=== PATIENT | female | born 1995 | race African-American/Black ===

== ENCOUNTER 2017-02-01 06:12 | Emergency (ER) | payer OTHER ==
[~2017-02-01] VITALS: Ht 167.6 cm; Wt 89.9 kg
[~2017-02-01 06:12] MED LIST: ULTRAM50 MG PO
[2017-02-01 07:35] LABS: ADD MIUA? NO; BILIRUBIN NEGATIVE; BLOOD NEGATIVE; COLOR YELLOW ((YELLOW)); GLUCOSE (STRIP) NEGATIVE; KETONES NEGATIVE; LEUKOCYTES NEGATIVE; NITRITE NEGATIVE; PROTEIN (STRIP) NEGATIVE; SPECIFIC GRAVITY 1.013 (1.000-1.030)
[2017-02-01 07:58] LABS: HEMATOCRIT 39.6 % (36.0-46.0); MCH 29.8 PG (29.0-34.0); MCHC 33.3 G/DL (30.0-36.0); MCV 89.4 FL (83-99); MEAN PLAT.VOLUME 9.2 uM^3 (9.5-12.4); PLATELET COUNT 279 K/uL (156-360); RBC DIS.WIDTH-CV 11.4 % (11.8-14.6); RED BLOOD COUNT 4.43 M/uL (3.80-5.20); WHITE BLOOD COUNT 4.5 K/uL (4.1-10.2)
[2017-02-01 08:06] LABS: CHLORIDE 104 mEq/L (99-109); POTASSIUM 3.7 mEq/L (3.7-5.4); SODIUM 137 mEq/L (136-147)
[2017-02-01 08:09] LABS: GLUCOSE 99 mg/dL (70-99); INTER. NORMALIZED RATIO 1.1; PROTHROMBIN TIME 12.6 SEC (10.2-12.9)
[2017-02-01 08:10] LABS: ANION GAP 10 MEQ/L (2-14)
[2017-02-01 08:11] LABS: TOTAL BILIRUBIN 0.5 mg/dL (0.0-1.0)
[2017-02-01 08:12] LABS: ALKALINE PHOSPHATASE 49 IU/L (3-129); GFR ESTIMATE (CALCULATED) > 59 mL/min/; PTT 31.1 SEC (25-37)
[2017-02-01 08:13] LABS: UREA NITROGEN (BUN) 7 mg/dL (9-23)
[2017-02-01 08:25] LABS: QUANTITATIVE HCG < 4.0 MIU/ML
[2017-02-01 08:54] LABS: EOSINOPHIL (%) 2.9 % (0-5); EOSINOPHIL COUNT 0.1 K/uL (0-0.3); IMMATURE GRANULOCYTE (%) 0.4 % (0.0-0.7); INSTRUMENT ABS NEUTROPHIL CT 2.5 K/uL; LYMPHOCYTE COUNT 1.5 K/uL (1.0-2.8); MONOCYTE (%) 8.6 % (3-12); MONOCYTE COUNT 0.4 K/uL (0-0.8); NEUTROPHIL (%) 54.8 % (45-76); NEUTROPHIL COUNT 2.5 K/uL (1.8-6.4)
[2017-02-01 09:12] LABS: C-REACTIVE PROTEIN 37.6 MG/L (0-10)
[2017-02-01] MEDS ORDERED: MOTRIN800 MG PO (10:25)
[2017-02-01 10:44] VITALS: BP 112/66
[2017-02-01 13:05] LABS: JO-1 ANTIBODY 31 U/mL (0-99); SM (SMITH) ANTIBODY 19 U/mL (0-99); SS-A (SJOGREN'S) ANTIBODY 148 U/mL (0-99); SS-B (SJOGREN'S) ANTIBODY 20 U/mL (0-99)
== END 2017-02-01 10:44 | disposition home or self-care (01) ==
LOC: EME 06:12
PROVIDERS: Emergency Medicine
DX: M25.50 Pain in unspecified joint (principal); M79.604 Pain in right leg; M79.605 Pain in left leg; M54.2 Cervicalgia; M54.5 Low back pain; M79.601 Pain in right arm; M79.602 Pain in left arm; R68.83 Chills (without fever)
CPT/HCPCS: 80053; 81003; 84702; 85025; 85610; 85730; 86038; 86140; 86235; 86430; 93970; 99281; 99284